=== PATIENT | female | born 1965 | race Caucasian/White ===

== ENCOUNTER 2017-12-22 00:04 | Inpatient (IN) | payer BC ==
[2017-12-22] VITALS (7 sets, daily range): BP systolic 121–162; BP diastolic 66–94
[~2017-12-22] VITALS: Ht 180.3 cm; Wt 105.6 kg
[~2017-12-22 00:04] MED LIST: ASPIRIN81 M2 PO
[2017-12-22 00:36] LABS: HEMATOCRIT 44.6 % (38.0-50.0); HEMOGLOBIN 15.7 G/DL (12.5-16.6); MCH 31.2 PG (29.0-34.0); MCHC 35.2 G/DL (30.0-36.0); MCV 88.7 FL (86-99); PLATELET COUNT 271 K/uL (156-360); RBC DIS.WIDTH-CV 13.1 % (11.8-14.6); RBC DIS.WIDTH-SD 42.5 % (39-53); RED BLOOD COUNT 5.03 M/uL (4.00-5.50); WHITE BLOOD COUNT 15.6 K/uL (4.1-10.2)
[2017-12-22 00:47] LABS: ALBUMIN 4.2 g/dL (3.2-4.8); CHLORIDE 106 mEq/L (99-109); POTASSIUM 3.7 mEq/L (3.7-5.4); SODIUM 139 mEq/L (136-147)
[2017-12-22 00:49] LABS: GLUCOSE 136 mg/dL (70-99); TOTAL PROTEIN 6.6 g/dL (6.4-8.3)
[2017-12-22 00:51] LABS: TOTAL BILIRUBIN 0.6 mg/dL (0.0-1.0)
[2017-12-22 00:53] LABS: ALKALINE PHOSPHATASE 61 IU/L (3-129); CREATININE 1.2 mg/dL (0.6-1.3); GFR ESTIMATE (CALCULATED) > 59 mL/min/ (58.99-99999)
[2017-12-22 00:54] LABS: UREA NITROGEN (BUN) 18 mg/dL (9-23)
[2017-12-22 00:56] LABS: ALT (GPT) 24 IU/L (3-49); LIPASE 21 U/L (1.0-51.0)
[2017-12-22 01:00] LABS: INTER. NORMALIZED RATIO 0.9
[2017-12-22 01:02] LABS: AST (GOT) 24 IU/L (2-34); PTT 24.4 SEC (25-37)
[2017-12-23 03:07] VITALS: BP 117/83
[2017-12-23 06:36] LABS: HEMATOCRIT 37.4 % (38.0-50.0); HEMOGLOBIN 12.6 G/DL (12.5-16.6); MCH 30.4 PG (29.0-34.0); MCHC 33.7 G/DL (30.0-36.0); MCV 90.3 FL (86-99); PLATELET COUNT 210 K/uL (156-360); RBC DIS.WIDTH-SD 42.7 % (39-53); RED BLOOD COUNT 4.14 M/uL (4.00-5.50); WHITE BLOOD COUNT 7.7 K/uL (4.1-10.2)
[2017-12-23 07:08] LABS: ALKALINE PHOSPHATASE 50 IU/L (3-129); ALT (GPT) 15 IU/L (3-49); AST (GOT) 18 IU/L (2-34); CHLORIDE 101 MEQ/L (99-109); CREATININE 0.8 MG/DL (0.6-1.3); GFR ESTIMATE (CALCULATED) > 59 mL/min/ (58.99-99999); GLUCOSE 108 mg/dL (70-99); SODIUM 138 MEQ/L (136-147); TOTAL BILIRUBIN 0.9 MG/DL (0.0-1.0); TOTAL PROTEIN 4.8 G/DL (6.4-8.3); UREA NITROGEN (BUN) 7 mg/dL (9-23)
[2017-12-23 07:38] VITALS: BP 142/82
[2017-12-23 11:16] VITALS: BP 162/89
[2017-12-23 15:51] VITALS: BP 153/85
[2017-12-23] MEDS ORDERED: EXCEDRIN MIGRA1 EAC3 PO (17:16)
[2017-12-23 23:47] VITALS: BP 143/83
[2017-12-24 06:30] LABS: HEMATOCRIT 40.3 % (38.0-50.0); HEMOGLOBIN 13.7 G/DL (12.5-16.6); MCH 31.1 PG (29.0-34.0); MCV 91.6 FL (86-99); PLATELET COUNT 238 K/uL (156-360); RBC DIS.WIDTH-CV 12.9 % (11.8-14.6); WHITE BLOOD COUNT 9.5 K/uL (4.1-10.2)
[2017-12-24 06:52] LABS: CHLORIDE 100 MEQ/L (99-109); CREATININE 0.9 MG/DL (0.6-1.3); GFR ESTIMATE (CALCULATED) > 59 mL/min/ (58.99-99999); GLUCOSE 110 mg/dL (70-99); POTASSIUM 4.4 MEQ/L (3.7-5.4); SODIUM 140 MEQ/L (136-147); UREA NITROGEN (BUN) 5 mg/dL (9-23)
[2017-12-24 07:35] VITALS: BP 147/83
[2017-12-24 15:30] VITALS: BP 171/80
[2017-12-24 19:13] VITALS: BP 116/74
[2017-12-24 23:01] VITALS: BP 147/90
[2017-12-25 04:46] VITALS: BP 138/86
[2017-12-25 07:46] VITALS: BP 140/91
[2017-12-25 11:50] VITALS: BP 134/85
[2017-12-25 15:21] VITALS: BP 141/88
[2017-12-25 19:18] VITALS: BP 129/85
[2017-12-25 23:22] VITALS: BP 128/82
[2017-12-26 03:28] VITALS: BP 122/72
[2017-12-26 07:20] VITALS: BP 132/71
[2017-12-26 11:40] VITALS: BP 128/82
[2017-12-26 16:15] VITALS: BP 136/78
[2017-12-26 19:53] VITALS: BP 139/82
[2017-12-26 23:24] VITALS: BP 140/87
[2017-12-27 03:52] VITALS: BP 126/75
[2017-12-27 07:51] VITALS: BP 131/70
[2017-12-27 12:01] VITALS: BP 153/86
[2017-12-27] MEDS ORDERED: OXYCONTIN15 MG PO (12:12)
[2017-12-27] MEDS ORDERED: PARAFON FORTE500 MG PO (12:12)
[2017-12-27] MEDS ORDERED: COLACE100 MG PO (12:12)
[2017-12-27] MEDS ORDERED: ROXICODONE5 MG PO (12:12)
[2017-12-27 15:30] VITALS: BP 108/58
[2017-12-27 23:57] VITALS: BP 145/85
[2017-12-28 07:44] VITALS: BP 164/88
== END 2017-12-28 14:48 | disposition home or self-care (01) | DRG 199 ==
LOC: EME 00:04 → TRA 00:04 → 3EAST 03:25 → EDOF 03:25 → 3EAST 05:14 → EDSEX 12-28 14:48
PROVIDERS: Emergency Medicine; Physician Assistant Surgical; Surgery
PROC: 0W9B30Z Drainage of Left Pleural Cavity with Drainage Device, Percutaneous Approach (ICD-10-PCS; principal; 2017-12-22)
DX: S27.2XXA Traumatic hemopneumothorax, initial encounter (principal); V29.9XXA Motorcycle rider (driver) (passenger) injured in unspecified traffic accident, initial encounter; S42.032A Displaced fracture of lateral end of left clavicle, initial encounter for closed fracture; E66.9 Obesity, unspecified; Z68.32 Body mass index [BMI] 32.0-32.9, adult; S22.5XXA Flail chest, initial encounter for closed fracture; R09.02 Hypoxemia; G43.909 Migraine, unspecified, not intractable, without status migrainosus
CPT/HCPCS: 70450; 71045; 71260; 73000; 73030; 74019; 80048; 80053; 83690; 85027; 85610; 85730; 94799; 97530 GO; 99281; 99285; J1170; J1650; J1885; J2405; J2765; J2795; J3010; J7030; J7120; L3650